=== PATIENT | female | born 1990 ===

== ENCOUNTER 2024-11-26 14:29 | Emergency (ER) | payer SELFPAY ==
[~2024-11-26] VITALS: Ht 172.7 cm; Wt 98.0 kg
[2024-11-26] MEDS ORDERED: ACETAMINOPHEN IV 1000 MG/100ML (10MG/ML) IV STA (14:43)
[2024-11-26] MEDS ORDERED: SODIUM CHLORIDE 0.9% 1,000 ML IV ONE (14:45)
[2024-11-26] MEDS ORDERED: ONDANSETRON HCL 4 MG/2 ML VIAL IV ONE (14:45)
[2024-11-26 14:46] VITALS: BP 156/112; PULSE 80; RESP 18; O2SAT 100
--- NOTE | 2024-11-26 14:50 | ED.PDOC ---
History of Present Illness HPI Comments 34-year-old female brought in by EMS presents with a chief complaint of abdominal pain x 7 days and nausea. Patient states that her pain is from a "Crohns flare-up" and is requesting Dilaudid. Patient was given Fentanyl en route by EMS and reports no relief of pain. Patient denies having a primary doctor and denies having a service porter. Patient mentions that shes supposed to be taking medications for her Crohns, but denies any medication compliance. Patient is requesting Dilaudid and states "if you can't give me what I want then I'll leave and go somewhere else". Chief Complaint: Abdominal Pain Time Seen by MD: 14:36 Reviewed Notes: Medications, Allergies Allergies: Coded Allergies: NSAIDs (Verified Allergy, Unknown, 11/26/24) Uncoded Allergies: MORPHINE (Allergy, Unknown, 11/26/24) TORODOL (Allergy, Unknown, 11/26/24) Information Source: Patient, Emergency Med Personnel Mode of Arrival: EMS Severity: Moderate Timing: Minutes Duration: Since onset Prehospital treatment: Pain Meds (Fentanyl IV) Past Medical History Past Medical History (Other): Crohns Surgical History: Denies all surgeries HITCHER History: Denies all HITCHER Hx Family History Family History: Reviewed,noncontributory to illness Social History Lives In: Home Constitutional: denies: chills, diaphoresis, fatigue, fever, malaise, sweats, weakness, others EENTM: denies: blurred vision, double vision, ear bleeding, ear discharge, ear drainage, ear pain, ear ringing, eye pain, eye redness, hearing loss, mouth pain, mouth swelling, nasal discharge, nose bleeding, nose congestion, nose pain, photophobia, tearing, throat pain, throat swelling, voice changes, others Respiratory: denies: cough, hemoptysis, orthopnea, SOB at rest, shortness of breath, SOB with excertion, stridor, wheezing, others Cardiovascular: denies: chest pain, dizzy spells, diaphoresis, Dyspnea on exertion, edema, irregular heart beat, left arm pain, lightheadedness, palpitations, PND, syncope, others Gastrointestinal: reports: abdominal pain, nausea; denies: abdomen distended, blood streaked bowels, constipated, diarrhea, dysphagia, difficulty swallowing, hematemesis, melena, poor appetite, poor fluid intake, rectal bleeding, rectal pain, vomiting, others Genitourinary: denies: abnormal vagina bleeding, burning, dyspareunia, dysuria, flank pain, frequency, hematuria, incontinence, pain, , vagina discharge, urgency, others Neurological: denies: dizziness, fainting, headache, left sided numbness, left sided weakness, numbness, paresthesia, pre-existing deficit, right sided numbness, right sided weakness, seizure, speech problems, tingling, tremors, weakness, others Musculoskeletal: denies: back pain, gout, joint pain, joint swelling, muscle pain, muscle stiffness, neck pain, others Integumetry: denies: bruises, change in color, change in hair/nails, dryness, laceration, lesions, lumps, rash, wounds, others Allergic/Immunocompromised: denies: Difficulty Healing, Frequent Infections, Hives, Itching, others Hematologic/Lymphatic: denies: anemia, blood clots, easy bleeding, easy bruising, swollen glands, others Endocrine: denies: excessive hunger, excessive sweating, excessive thirst, excessive urination, flushing, intolerance to cold, intolerance to heat, unexplained weight gain, unexplained weight loss, others Psychiatric: denies: anxiety, bipolar disorder, depression, hopeless, panic disorder, schizophrenia, sleepless, suicidal, others All Other Systems: Reviewed and Negative Physical Exam General Appearance: Mild Distress, Normal HEENT: NOT DONE Neck: NOT DONE Respiratory: No Accessory Muscle Use, No Respiratory Distress, Normal Breath Sounds Cardiovascular: No Edema, No JVD, No Murmur, No Gallop, Normal Peripheral Pulses, Regular Rate/Rhythm Breast Exam: Deferred Gastrointestinal: Diffuse, No Pulsatile Mass, Normal Bowel Sounds, Tenderness Genitalia: Deferred Pelvic: Deferred Rectal: Deferred Extremities: No calf tenderness, Normal capillary refill, Normal inspection, Normal range of motion, Non-tender, No pedal edema Neurologic: Alert, 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 Was a procedure done?: No X-Ray, Labs, Meds, VS Vital Signs Date Time Temp Pulse Resp B/P (MAP) Pulse Ox O2 Delivery O2 Flow Rate FiO2 2/9/25 14:46 99.6 80 18 156/112 (398) 100 Time of 1ST Reevaluation: 15:06 Reevaluation 1ST: Unchanged Patient Education/Counseling: Diagnosis, Treatment, Prognosis Family Education/Counseling: Diagnosis, Treatment, Prognosis Critical Care Note Critical Care Time?: No I personally scribed for GUDELIA WANG MD ([email or web address]) on 11/26/24 at 14:50. Polly ctronically submitted by Attila Jones ([email or web address]). I personally scribed for GUDELIA WANG MD ([email or web address]) on 11/26/24 at 14:53. Elec tronically submitted by Attila Jones ([email or web address]). GUDELIA WANG MD Nov 26, 2024 14:50
[2024-11-26 15:29] LABS: Hematocrit 43.5 % (36.0-46.0); Hemoglobin 14.2 g/dL (12.2-16.2); Mean Corpuscular Hemoglobin 28.3 pg (28.0-32.0); Mean Corpuscular Hgb Conc. 32.7 g/dL (32.0-36.0); Mean Corpuscular Volume 86.3 fL (80.0-100.0); Platelet Count (auto) 401 10^3/uL (140-450); Red Blood Cells 5.04 10^6/uL (4.0-5.20); Red Cell Distribution Width 16.6 % (11.8-14.3); White Blood Cell 8.7 10^3/uL (4.4-10.8)
[2024-11-26 15:34] LABS: Band Neutrophils % (manual) 0; Basophils % (manual) 0 (0.0-2.0); Blast Cells 0; Eosinophils % (manual) 0 (0-7); Metamyelocytes % 0; Myelocytes % 0; Promyelocytes % 0; Reactive Lymphocytes 0
[2024-11-26 15:36] LABS: Chloride 104 mmol/L (98-107); Potassium 3.7 mmol/L (3.5-5.1); Sodium 138 mmol/L (136-145)
[2024-11-26 15:37] LABS: Anion Gap 10 (5-15); Carbon Dioxide 24 mmol/L (20-31)
[2024-11-26 15:42] LABS: BUN/Creatinine Ratio 10.5 (10.0-20.0)
[2024-11-26 15:43] LABS: Blood Urea Nitrogen 6 mg/dL (9-23); Glucose 107 mg/dL (74-106)
[2024-11-26 15:48] LABS: Lymphocytes % (manual) 12 (10.0-50.0); Monocytes % (manual) 4 (0-12)
[2024-11-26 15:49] LABS: Large Platelets FEW; Platelet Estimate Adequa
== END 2024-11-26 17:59 | disposition left against medical advice (07) ==
LOC: ER 14:29 → EDBD 14:29 → ER 17:59
DX: R10.9 Unspecified abdominal pain (principal); R11.0 Nausea; K50.90 Crohn's disease, unspecified, without complications; Z88.5 Allergy status to narcotic agent; Z88.6 Allergy status to analgesic agent
CPT/HCPCS: 36415; 80048; 85007; 85027